=== PATIENT | female | born 2000 | race Caucasian/White ===

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

== ENCOUNTER 2018-12-16 13:08 | Emergency (ER) | payer MEDICAID ==
[~2018-12-16] VITALS: Ht 162.6 cm; Wt 84.0 kg
[2018-12-16 13:10] VITALS: BP 107/69
--- NOTE | 2018-12-16 13:24 | NUR ---
PT STATES SHE IS HAVING SOME DIAPHRAM DISCOMFORT THAT MOVES FROM THE CENTER TO THE SIDES BILAT OF HER RIBS, STATES SHE IS HAVING SOME BACK PAIN SHE FEELS IS D/T SOME "PHYSICAL ACTIVITY".
--- NOTE | 2018-12-16 14:38 | NUR ---
Patient/Caregiver given discharge instructions and they have confirmed that they understand the instructions. Patient ambulatory with steady gait.
== END 2018-12-16 14:39 | disposition home or self-care (01) ==
LOC: ED 14:20
DX: R07.89 Other chest pain (principal); J45.909 Unspecified asthma, uncomplicated; Z90.49 Acquired absence of other specified parts of digestive tract; F17.210 Nicotine dependence, cigarettes, uncomplicated
CPT/HCPCS: 71046; 93005; 99283

== ENCOUNTER 2019-08-17 19:41 | Emergency (ER) | payer MEDICAID ==
[~2019-08-17] VITALS: Ht 165.1 cm; Wt 83.2 kg
[2019-08-17] MEDS ORDERED: prenatal vitamin (19:53)
[2019-08-17 20:24] LABS: BASOPHILS # (AUTO) 0.09 x10^3/uL (0-0.3); BASOPHILS % (AUTO) 1 % (0-1); EOSINOPHILS # (AUTO) 0.11 x10^3/uL (0-0.8); EOSINOPHILS % (AUTO) 2 % (1-7); LYMPHOCYTES # (AUTO) 1.62 x10^3/uL (1-6.1); LYMPHOCYTES % (AUTO) 25 % (22-44); MD NO; MEAN CORPUSCULAR HGB CONC 33.6 g/dL (32.4-35.8); MEAN CORPUSCULAR VOLUME 86.4 fL (80-100); MONOCYTES # (AUTO) 0.34 x10^3/uL (0-1.4); MONOCYTES % (AUTO) 5 % (2-9); NEUTROPHILS # (AUTO) 4.45 x10^3/uL (1.8-8.0); NEUTROPHILS % (AUTO) 67 % (42-75); PLATELET COUNT 167 x10^3/uL (130-400); RED CELL DISTRIBUTION WIDTH 13.9 % (9.6-15.2)
[2019-08-17] MEDS ORDERED: ONDANSETRON 2MG/ML, 2ML ONE (20:27)
[2019-08-17 20:28] LABS: ALANINE AMINOTRANSFERASE 13 U/L (12-78); ALBUMIN 3.2 g/dL (3.4-5.0); ANION GAP 7 mmol/L (5-15); CALCIUM 8.9 mg/dL (8.5-10.1); CHLORIDE 105 mmol/L (98-107)
[2019-08-17] MEDS ORDERED: SODIUM CHLORIDE 0.9% 1,000ML IVBOLUS ONE (20:30)
[2019-08-17] MEDS ORDERED: PLEASE ENTER ALLERGIES MC SCH (20:30)
[2019-08-17] MEDS ORDERED: ONDANSETRON 2MG/ML, 2ML IVPush ONE (20:30)
[2019-08-17 20:45] LABS: ALKALINE PHOSPHATASE 72 U/L (45-117); BILIRUBIN,TOTAL 0.4 mg/dL (0.2-1.0); TOTAL PROTEIN 7.2 g/dL (6.4-8.2)
--- NOTE | 2019-08-17 20:57 | NUR ---
PT TO ROOM 9 PER PEDIS. PT 12WK 3 DAYS AND HAS BEEN NAUSEATED WITH VOMITING X3 DAYS. PT UNABLE TO KEEP FLUIDS OR SOLIDS DOWN. FHT 182 IV STARTED WITHOUT DIFFICULTY, ZOFRAN GIVEN, FLUIDS RUNNING, MONITOR ATTACHED AND US CALLED.
--- NOTE | 2019-08-17 21:48 | NUR ---
MD AT BEDSIDE TO DISCUSS US AND LAB RESULTS. PATIENT DENIES NAUSEA, 1 LITRE OF FLUID IN AND IV ZOFRAN GIVEN.
[2019-08-17 22:00] LABS: CULTURE INDICATED? YES; MICROSCOPIC INDICATED
[2019-08-17 22:25] VITALS: BP 122/78
== END 2019-08-17 22:27 | disposition home or self-care (01) ==
LOC: ED 21:45
DX: O21.0 Mild hyperemesis gravidarum (principal); O99.511 Diseases of the respiratory system complicating pregnancy, first trimester; O99.351 Diseases of the nervous system complicating pregnancy, first trimester; J45.909 Unspecified asthma, uncomplicated; G43.909 Migraine, unspecified, not intractable, without status migrainosus; Z3A.12 12 weeks gestation of pregnancy
CPT/HCPCS: 36415; 76801; 80053; 81001; 84702; 85025; 87086; 96361; 96374; 99284; J2405; J7030